=== PATIENT | male | born 1955 | race Caucasian/White ===

== ENCOUNTER 2022-03-21 18:29 | Observation (INO) | payer MEDICARE, BC ==
[~2022-03-21] VITALS: Ht 175.3 cm; Wt 95.8 kg
[2022-03-21 20:00] LABS: BASO % 0.5 % (0.0-1.0); EOS # 0.1 10^3/uL (0.0-0.5); EOS % 1.6 % (0.0-3.0); HEMATOCRIT 50.3 % (42.0-52.0); HEMOGLOBIN 17.2 g/dl (13.5-17.5); LYMPH # 2.8 10^3/uL (1.5-5.0); LYMPH % 36.9 % (24.0-44.0); MEAN CORPUSCULAR HEMOGLOBIN 29.6 pg (27.0-33.0); MEAN CORPUSCULAR HGB CONC 34.2 g/dl (32.0-36.5); MEAN CORPUSCULAR VOLUME 86.6 fl (80.0-96.0); MONO % 13.3 % (2.0-8.0); NEUTROPHILS # 3.5 10^3/uL (1.5-8.5); NEUTROPHILS % 47.4 % (36.0-66.0); PLATELET COUNT, AUTOMATED 256 10^3/uL (150-450); RED BLOOD COUNT 5.81 10^6/uL (4.30-6.10); WHITE BLOOD COUNT 7.5 10^3/uL (4.0-10.0)
[2022-03-21] MEDS ORDERED: VALS320T3 PO (20:03)
[2022-03-21] MEDS ORDERED: CART180C3 PO (20:03)
[2022-03-21] MEDS ORDERED: OMEP1CAP73 PO (20:04)
[2022-03-21] MEDS ORDERED: GING1CAP PO (20:04)
[2022-03-21] MEDS ORDERED: KRIL1CAP6 PO (20:05)
[2022-03-21 20:11] LABS: INR 1.06; PROTHROMBIN TIME 14.2 SECONDS (12.7-14.5)
[2022-03-21 20:12] LABS: PARTIAL THROMBOPLASTIN TIME 30.7 SECONDS (25.9-37.0)
[2022-03-21] MEDS ORDERED: CENT1TAB12 PO (20:24)
[2022-03-21] MEDS ORDERED: HOME MED LIST COMPLETE! XX SCH (20:25)
[2022-03-21 20:33] LABS: RSV AMPLIFICATION NEGATIVE (NEGATIVE)
[2022-03-21 20:35] LABS: CK-MB VALUE MASS < 1.0 NG/ML (<3.6); CPK CREATINE PHOSPHOKINASE 120 U/L (39-308); MB/CK RELATIVE INDEX 0.83 (< OR =4)
[2022-03-21 20:37] LABS: BLOOD UREA NITROGEN 16 MG/DL (7-18); CALCIUM LEVEL 9.2 MG/DL (8.8-10.2); CARBON DIOXIDE LEVEL 31 MEQ/L (21-32); CHLORIDE LEVEL 105 MEQ/L (98-107); GLOMERULAR FILTRATION RATE > 60.0 (>49); GLUCOSE, FASTING 84 MG/DL (70-100); SODIUM LEVEL 139 MEQ/L (136-145)
[2022-03-21] MEDS ORDERED: ACETAMINOPHEN TAB 650MG DOSE (2X325MG) PO PRN (21:50)
[2022-03-21] MEDS ORDERED: MAALOX 30 ML SUSP *UDC PO PRN (21:50)
[2022-03-21] MEDS ORDERED: MOM 30ML SUSPENSION UDC PO PRN (21:50)
[2022-03-21] MEDS ORDERED: ASPIRIN 81 MG CHEW TABLET PO ONE (23:35)
[2022-03-22] MEDS ORDERED: **hydrALAZINE** 50 MG TAB PO ONE (01:50)
[2022-03-22 07:06] LABS: HEMATOCRIT 49.5 % (42.0-52.0); HEMOGLOBIN 16.6 g/dl (13.5-17.5); MEAN CORPUSCULAR HEMOGLOBIN 29.1 pg (27.0-33.0); MEAN CORPUSCULAR HGB CONC 33.5 g/dl (32.0-36.5); MEAN CORPUSCULAR VOLUME 86.8 fl (80.0-96.0); PLATELET COUNT, AUTOMATED 266 10^3/uL (150-450); WHITE BLOOD COUNT 6.8 10^3/uL (4.0-10.0)
[2022-03-22 07:36] LABS: BLOOD UREA NITROGEN 13 MG/DL (7-18); CALCIUM LEVEL 8.5 MG/DL (8.8-10.2); CARBON DIOXIDE LEVEL 29 MEQ/L (21-32); CHLORIDE LEVEL 105 MEQ/L (98-107); CHOLESTEROL LEVEL 196 MG/DL (<200); CHOLESTEROL RISK RATIO 4.558 (<5); CREATININE FOR GFR 1.08 MG/DL (0.70-1.30); GLOMERULAR FILTRATION RATE > 60.0 (>49); GLUCOSE, FASTING 88 MG/DL (70-100); HDL CHOLESTEROL 43 MG/DL (>40); LDL CHOLESTEROL 130 MG/DL (<100); MAGNESIUM LEVEL 2.2 MG/DL (1.8-2.4); NON-HDL-C 153 MG/DL; POTASSIUM SERUM 3.9 MEQ/L (3.5-5.1); SODIUM LEVEL 138 MEQ/L (136-145); TRIGLYCERIDES LEVEL 113 MG/DL (<150)
[2022-03-22 07:38] LABS: HEMOGLOBIN A1c 5.7 %
[2022-03-22] MEDS ORDERED: OMEPRAZOLE 20MG CAP PO SCH (09:00)
[2022-03-22] MEDS ORDERED: VALSARTAN 80 MG TAB (DIOVAN) PO SCH (09:00)
[2022-03-22] MEDS ORDERED: DOCUSATE SODIUM 100MG CAPSULE PO SCH (09:00)
[2022-03-22] MEDS ORDERED: ATORVASTATIN 20 MG TAB PO SCH (09:00)
[2022-03-22] MEDS ORDERED: ASPIRIN 81 MG CHEW TABLET PO SCH (09:00)
[2022-03-22 09:32] VITALS: BP 161/93
[2022-03-22] MEDS ORDERED: ATOR40TA75 PO (13:38)
[2022-03-22] MEDS ORDERED: ASPI81CH8 PO (13:38)
[2022-03-22 15:00] VITALS: BP 158/89
== END 2022-03-22 15:50 | disposition home or self-care (01) ==
LOC: M ED 18:29 → M ED INP 21:47 → ENRESERV 03-22 13:36
PROVIDERS: ADMIT Internal Medicine; ATTEND Internal Medicine
DX: G45.9 Transient cerebral ischemic attack, unspecified (principal); I65.02 Occlusion and stenosis of left vertebral artery; D57.03 Hb-SS disease with cerebral vascular involvement; Z79.899 Other long term (current) drug therapy
CPT/HCPCS: 36415; 70450; 70544; 70551; 71045; 80048; 80061; 82550; 82553; 83036; 83735; 84484; 85025; 85027; 85610; 85730; 87631; 93005; 93041; 93306; 93880; 94760; 99285; G0378